=== PATIENT | female | born 1985 | race Two or more races ===

== ENCOUNTER 2016-07-21 22:27 | Emergency (ER) | payer OTHER ==
[2016-07-22] MEDS ORDERED: METOCLOPRAMIDE HCL 5 MG/ML 2ML VIAL ONE (02:51)
[2016-07-22] MEDS ORDERED: DIPHENHYDRAMINE HCL 50 MG/1 ML VIAL ONE (02:52)
[2016-07-22] MEDS ORDERED: KETOROLAC TROMETHAMINE 15 MG/ML VIAL ONE (02:52)
[2016-07-22] MEDS ORDERED: LACTATED RINGERS 1,000 ML ONE (02:56)
== END 2016-07-22 04:31 | disposition home or self-care (01) ==
LOC: ED 22:27
DX: R51 Headache (principal)
CPT/HCPCS: 96375 ×2; 99283 ×2; 96374; 96361; J1200; J2765; J1885; J7120

== ENCOUNTER 2016-08-24 18:06 | Emergency (ER) | payer OTHER ==
[2016-08-24] MEDS ORDERED: ACETAMINOPHEN 325 MG TABLET ONE (18:53)
[2016-08-24 19:08] LABS: ABSOLUTE NEUTROPHIL COUNT 3.6 K/mm3 (1.8-7.7); BASO % 0.4 % (0.2-1.0); EOS # 0.1 (0.0-0.5); EOS % 0.9 % (0.9-2.9); HEMATOCRIT 41.3 % (37.0-47.0); IMM NEUT% 0.3 % (0-1); LYMPH # 2.7 (1.0-4.8); LYMPH % 38.7 % (15-45); MEAN CELL VOLUME 90.8 fl (81.0-99.0); MEAN CORPUSCULAR HEMOGLOBIN 30.8 pg (27.0-31.0); MEAN CORPUSCULAR HGB CONC 33.9 g/dl (33.0-37.0); MEAN PLATELET VOLUME 9.4 fl (7.4-10.4); MONO # 0.5 (0.0-0.8); MONO % 7.4 % (4-12); NEUT % 52.3 % (43-75); PLATELET COUNT 278 K/mm3 (130-400); RED CELL DISTRIBUTION WIDTH 12.3 % (11.5-14.5)
[2016-08-24] MEDS ORDERED: ONDANSETRON 4 MG ODT TAB ONE (19:18)
--- NOTE | 2016-08-24 19:57 | US ---
OB COMP <14 WKS, OB TRANSVAGINAL HISTORY: Bleeding with bathroom use for 3 days. The patient is , expected to be at 5 weeks 4 days gestational age. COMPARISONS: None. FINDINGS: Transabdominal and transvaginal ultrasonography was performed demonstrating a small fluid collection within the fundal portion of the endometrial canal. The collection measures 6.2 mm in size which would be equivalent to a gestational age of 4 weeks 4 days. However, no yolk sac or pole is visualized to confirm this as an intrauterine gestation. There appear to be 2 myometrial fibroids measuring up to 2.5 and 0.8 cm in size. The maternal right ovary measures 4.5 x 2.6 x 3.0 cm. The left ovary measures 3.3 x 2.9 x 4.2 cm. There is flow within both ovaries. A mildly complicated cystic structure seen within the maternal left ovary measuring 1.5 cm in size. A moderate amount of pelvic free fluid is observed. IMPRESSION: 1. A small intrauterine fluid collection measuring 6.2 mm in size, which would be equivalent to a gestational age of 4 weeks 4 days producing an EDC of 04/29/2017. However, no yolk sac or pole is yet identified to confirm this as an intrauterine gestation. Considerations include early intrauterine or extrauterine gestations or a demise. Recommend serial beta-hCG levels and/or repeat ultrasound. 2. Two suggested uterine myometrial fibroids measuring up to 2.5 cm in size. 3. A mildly complicated 1.5 cm maternal left ovarian cyst. 4. A moderate amount of pelvic free fluid.
[2016-08-24 20:20] LABS: URINE BILIRUBIN NEGATIVE (NEGATIVE); URINE BLOOD 3+ (NEGATIVE); URINE GLUCOSE (UA) NEGATIVE (NEGATIVE); URINE LEUKOCYTE ESTERASE NEGATIVE (NEGATIVE); URINE NITRITE NEGATIVE (NEGATIVE); URINE PROTEIN NEGATIVE (NEGATIVE); URINE UROBILINOGEN NORMAL (0-1 mg/dl)
[2016-08-24 20:30] LABS: URINE APPEARANCE CLEAR; URINE COLOR STRAW
[2016-08-24 20:44] LABS: URINE WBC 0-1 /hpf
[2016-08-24 20:45] LABS: URINE BACTERIA 0
== END 2016-08-24 20:15 | disposition home or self-care (01) ==
LOC: ED 18:06
DX: O20.9 Hemorrhage in early pregnancy, unspecified (principal)
CPT/HCPCS: 84702; 85025; 81001; 76817; 76801; 99283 ×2; A9270 ×2

== ENCOUNTER 2016-09-14 11:56 | Day surgery (SDC) | payer OTHER ==
[2016-09-14] MEDS ORDERED: MIDAZOLAM HCL 1 MG/ML 2ML VIAL ONE ×2 (12:22→13:22)
[2016-09-14] MEDS ORDERED: IV START KIT ONE (12:27)
[2016-09-14] MEDS ORDERED: LACTATED RINGERS 1,000 ML ONE (12:27)
[2016-09-14] MEDS ORDERED: LIDOCAINE 1% 2 ML VIAL ID PRN (12:34)
[2016-09-14] MEDS ORDERED: LACTATED RINGERS 1,000 ML IV SCH (12:34)
[2016-09-14 13:03] LABS: ABSOLUTE NEUTROPHIL COUNT 4.4 K/mm3 (1.8-7.7); BASO % 0.3 % (0.2-1.0); EOS # 0.1 (0.0-0.5); EOS % 0.9 % (0.9-2.9); HEMATOCRIT 39.4 % (37.0-47.0); HEMOGLOBIN 13.6 gm/l (12.0-16.0); IMM NEUT% 0.3 % (0-1); LYMPH # 1.9 (1.0-4.8); LYMPH % 28.3 % (15-45); MEAN CELL VOLUME 90.6 fl (81.0-99.0); MEAN CORPUSCULAR HEMOGLOBIN 31.3 pg (27.0-31.0); MEAN CORPUSCULAR HGB CONC 34.5 g/dl (33.0-37.0); MEAN PLATELET VOLUME 9.6 fl (7.4-10.4); MONO # 0.4 (0.0-0.8); MONO % 5.3 % (4-12); NEUT % 64.9 % (43-75); PLATELET COUNT 241 K/mm3 (130-400); RED CELL DISTRIBUTION WIDTH 11.9 % (11.5-14.5)
[2016-09-14] MEDS ORDERED: METHYLERGONOVINE MALEATE 0.2 MG/ML 1ML AMP ONE (13:03)
[2016-09-14] MEDS ORDERED: MISOPROSTOL 200 MCG TABLET ONE (13:03)
[2016-09-14] MEDS ORDERED: CARBOPROST TROMETH 250 MCG/ML AMP IM ONE (13:03)
[2016-09-14] MEDS ORDERED: OXYTOCIN 10 UNITS/ML VIAL ONE (13:03)
[2016-09-14] MEDS ORDERED: PROPOFOL 20 ML IV ONE (13:07)
[2016-09-14] MEDS ORDERED: MIDAZOLAM HCL 5 MG/5 ML VIAL ONE (13:07)
[2016-09-14] MEDS ORDERED: LIDOCAINE 2% (PRES FREE) 5 ML VIAL ONE (13:07)
[2016-09-14] MEDS ORDERED: FENTANYL 100 MCG/2 ML VIAL ONE (13:07)
[2016-09-14] MEDS ORDERED: IBUPROFEN 800 MG TABLET PO PRN (13:53)
[2016-09-14] MEDS ORDERED: OXYCODONE/ACETAMINOPHEN 5/325 MG TABLET PO PRN (13:53)
--- NOTE | 2016-09-14 13:54 | HP ---
Marla Phillips : 1985 DATE OF SURGERY: 09/14/2016 PREOPERATIVE DIAGNOSES: 1. Missed at 6-1/2 weeks gestation. 2. Recurrent first trimester miscarriage. HISTORY OF PRESENT ILLNESS: Marla Phillips is a 31-year-old 8, para 2-0-5-2 who is now at approximately 8 weeks of amenorrhea. She had an initial ultrasound on September 06 which showed a intrauterine consistent with 6 weeks and 4 days. heart tones were only at 89 beats per minute. No problems were identified at that time. The corpus luteum cyst was thought to be on the left ovary. The patient was noted to have two small intramural fibroids in the lower uterine segment measuring 2.3 cm in greater dimension. The patient then had a follow up ultrasound on 09/12/2016, this time the again measured 6 weeks and 3 days, but there was no cardiac activity. Otherwise, no problems were identified. The patient has been given two doses of Misoprostol which she has taken at home 24 hours apart, but she has not had any response. She has been having some mild low back pain and cramping, but no vaginal bleeding. She certainly has not passed the . The patient came into my office this morning and we talked about options. We could try further medical management, we could try just simply waiting, or we could proceed with a dilation and curettage. Marla was very definite that she wanted to do the dilation and curettage. She has had this procedure in the past. She feels that she needs to get this over with so that she can get on with her life. To review Marla's obstetrical history, her first was in 2005 and she had a normal vaginal at term after about 20 hours of labor. She did have an epidural. She had no complications. After that she had a 6 weeks miscarriage and then she had a termination of in the next year, then in 2007 she had another full term , this baby weighed 9 pounds 1 ounce. This baby was from the same father as her last several pregnancies. She has a healthy 8-year-old daughter, but then since then she has had four pregnancies and all have ended in first trimester miscarriages. She has not had this worked up in any way as yet though there was some discussion about this after her last loss. It seems that this patient's has a sister who had a number of losses in the first trimester. She apparently was treated with progesterone (?) and then was able to carry to term. Marla is wondering if there is something from the father's side of the family that might be contributing to these miscarriages. We did talk about chromosomal analysis. The patient is interested in doing this on the products of conception from today's dilation and curettage if we can. PAST MEDICAL HISTORY: Patient denies any major medical problems. Generally she is fairly healthy. She does not smoke, drink, nor use recreational drugs. She has had significant grief and depression about these losses and did do some counseling last year. PAST RETAIL ADVISOR HISTORY: Also includes a history of an abnormal pap smear in 2007 which showed ACUS and then this has since resolved. She has had just one dilation and curettage. Her other miscarriages have been spontaneous. PAST SURGICAL HISTORY: Includes a laparoscopic cholecystectomy in 2014. Patient says also that she had a hysteroscopy and removal of an intrauterine fibroid possibly a few years ago because this was thought to be contributing to her miscarriages. She did not have any complications with that surgery. ALLERGIES: PATIENT CLAIMS TO BE ALLERGIC TO PENICILLIN WHICH CAUSES RASHES AND HIVES. She has no other allergies. CURRENT MEDICATIONS: Patient has had the two doses of Misoprostol 600 mcg each time. She was taking vitamins, but she stopped these once she found out that this was not okay. PHYSICAL EXAMINATION: VITAL SIGNS: Blood pressure 106/62, pulse and respirations normal, height 5 feet 4 inches, weight 157 pounds. GENERAL: Marla is a pleasant intelligent woman who seems somewhat sad today. She is bilingual and speaks Amharic very well. LUNGS: Clear to auscultation. No costovertebral angle tenderness. HEART: Regular rate and rhythm. No murmur was heard. ABDOMEN: Soft, normal bowel sounds, nontender. PELVIC: Deferred. EXTREMITIES: Normal with no significant fluid retention. IMPRESSION: Marla Phillips is a 31-year-old who has had multiple miscarriages. She is requesting a dilation and curettage for management of this miss at 6-1/2 weeks gestation. She has been nothing by mouth since last night. She is being admitted to the hospital this morning as an outpatient for the dilation and curettage. JOB: [id number]
--- NOTE | 2016-09-14 14:02 | PCMBPN ---
Brief Post Op Note: Date of Procedure: 09/14/16 Start Time: Preoperative Diagnosis: 1. Missed Postoperative Diagnosis: 1. Same Procedure: dilation and curettage Surgeon: Annika Alston Assist:N/A Anesthesia: general, Yanely Malloy CRNA Findings: Uterus midplane, low, with cervix prolapsing almost to introitus, approx 6-7wks Cervix open 1 cm, no bleeding Suction curettage accomplished without difficulty. YOSVANY fibroids could not be appreciated. No anomaly of uterus. Condition: Good Complications: None IV Fluids: mLs of LR Urine Output: mLs Estimated Blood Loss: 100 mLs Tourniquet Time: N/A Specimens: N/A Implants: N/A Drains: N/A
--- NOTE | 2016-09-14 14:16 | PDOC5 ---
Hospital Course: ADMIT DATE: DISCHARGE DATE: 09/14/2016 ADMISSION DIAGNOSES: Missed . PROCEDURES: D&C HISTORY OF PRESENT ILLNESS: 31 year old presenting with US showing missed ab at 6.5weeks, but no response to misoprostol. HOSPITAL COURSE: The patient chose to have a D&C. After meeting Marla in the office and discussing options, the consent was signed. Pt was then prepped for the procedure at . The D&C was uncomplicated with EBL of less than 100cc. By day of discharge the patient is ambulating, eating, voiding, and passing flatus without difficulty. Pain is controlled. - Objective General: Afebrile Lungs: Clear to Auscultation Bilaterally Cardiovascular: Regular Rate and Rhythm Abdomen: Soft, Non-Distended Genitourinary: Normal Female Genitalia, Other (Light bleeding) Skin: Normal Color, Warm Neurological: Oriented x 4, Normal Speech Psych/Mental Status: Normal Affect - Discharge Diagnosis (1) Missed Status: AcuteAssessment/Plan: D&C performed without difficulty. Findings reviewed with pt and her partner Sherwin. Testing of the POC was discussed. Chromosomal analysis would be helpful since this is her 5th spontaneous miscarriage. - Discharge Plan Condition: Good Disposition: Home Prescriptions: Ibuprofen [IBUPROFEN 800 MG TABLET (SHF)] 800 mg PO Q6H PRN #60 PRN Reason: Pain Oxycodone HCl/Acetaminophen [PERCOCET 5/325 MG TABLET (SHF)] 1 - 2 tab PO Q4H PRN #14 PRN Reason: Pain Follow-Up: Annika Alston MD [Staff Physician] - In 2 weeks
[2016-09-14] MEDS ORDERED: IBUPROFEN 800 MG TABLET ONE (14:31)
--- NOTE | 2016-09-15 07:27 | OP ---
Marla Phillips : 1985 DATE OF SURGERY: 09/14/2016 PREOPERATIVE DIAGNOSIS: Missed 6-1/2 weeks gestation. POSTOPERATIVE DIAGNOSIS: Missed 6-1/2 weeks gestation. PROCEDURE PERFORMED: Suction dilation and curettage. SURGEON: Dr. Annika Alston. LICENSING COURT MAGISTRATE: Yanely Malloy CRNA. ANESTHESIA: General. ESTIMATED BLOOD LOSS: 100 mL. FINDINGS: The cervix was noted to be soft and open. The patient also was noted to have significant uterine descensus with the cervix nearly at the introitus. Uterus was 6 to 7 weeks in size, soft, mid plane. There was no vaginal bleeding before the procedure. DESCRIPTION OF PROCEDURE: After the usual preoperative preparations were completed in the preoperative area Marla was brought to the operating room, placed on the operating room table in a supine position. The usual monitoring leads were placed. General anesthesia was then administered in the usual fashion. The patient's position was then adjusted a little bit lower on the table. Her arms were out on arm boards and well protected. Her legs were elevated in the dorsolithotomy position with the candy cane stirrups. An exam under anesthesia showed the cervix to be nearly prolapsing through the introitus. The uterus itself was 6 to 7 weeks in size, soft, mid plane, mobile. There was no adnexal mass. There is no visible bleeding. At this point, a vaginal and perineal prep was done in the usual fashion and the patient was draped for a SHOW DESIGN SUPERVISOR procedure. A timeout was performed verifying proper patient, procedure, position, personnel, equipment. After verifying an adequate level of anesthesia the cervix was visualized by placing a weighted speculum in the posterior vaginal vault. The anterior lip of the cervix was grasped with the ring forceps. The cervix was already open nearly 1 cm. I dilated it just slightly more with the 8 mm dilator and then placed an 8mm suction curette through the cervix into the endometrial cavity. The uterine contents were easy removed showing classic products of conception. There was moderate bleeding initially. A single sharp curettage was done to explore the uterine cavity and this was felt to be smooth all around. I could not appreciate any fibroids distorting the endometrial cavity. The suction was applied one more time and there was no further tissue obtained. The uterus became quite firm with a single dose of IM Methergine 0.2 mg. At this point, bleeding was minimal. The instruments were removed from the vagina. Hemostasis was verified. Sponge and instrument counts were reported as correct. The patient was then cleaned up with warm water and taken out of the dorsolithotomy position. She was then gently awoken from anesthesia. She was transferred to her bed and taken to the recovery room in stable condition. We did send products of conception to [facility] with the request that chromosomal studies be done on this tissue if possible. I was concerned about whether [employer] insurance would cover this test and I explained this directly to the lab technicians. She was interested in the results of chromosomal studies as well as the pathology report looking for any infection or other etiology of her recurrent miscarriages. She has now had five spontaneous abortions. JOB: [id number]
== END 2016-09-14 15:05 | disposition home or self-care (01) ==
LOC: SDC 11:56
PROVIDERS: ATTEND Obstetrics & Gynecology
PROC: 10D17ZZ Extraction of Products of Conception, Retained, Via Natural or Artificial Opening (ICD-10-PCS; principal; 2016-09-14)
DX: O02.1 Missed abortion (principal); Z3A.08 8 weeks gestation of pregnancy; Z88.0 Allergy status to penicillin; Z87.410 Personal history of cervical dysplasia
CPT/HCPCS: 85025; 84443; 86901; 86850 ×3; 59820; J3010; J2210; A9270; J2250 ×3; J7120